=== PATIENT | male | born 1960 | race Caucasian/White ===

== ENCOUNTER 2018-07-21 00:19 | Outpatient (CLI) | payer SELFPAY | END 2018-07-21 00:20 | disposition short-term general hospital (02) | LOC: EMS 00:19 | PROVIDERS: ATTEND Surgery | DX: R07.89 Other chest pain (principal) | CPT/HCPCS: A0425; A0427 ==

== ENCOUNTER 2018-07-25 09:55 | Outpatient (CLI) | payer MEDICAID ==
[2018-07-25 12:44] LABS: BASOPHILS % (AUTO) 0.3 %; EOSINOPHILS # (AUTO) 0.1 10^3/uL (0.0-0.7); EOSINOPHILS % (AUTO) 0.8 %; HGB - HEMOGLOBIN 13.5 g/dL (14.0-18.0); LYMPHOCYTES # (AUTO) 1.5 10^3/uL (1.5-3.5); LYMPHOCYTES % (AUTO) 13.3 %; MEAN CORPUSCULAR HEMOGLOBIN 32.4 pg (27.0-31.0); MEAN CORPUSCULAR HGB CONC 33.3 g/dL (32.0-36.0); MEAN CORPUSCULAR VOLUME 97.4 fL (80.0-94.0); MEAN PLATELET VOLUME 8.8 fL (7.4-11.4); MONOCYTES # (AUTO) 1.5 10^3/uL (0.0-1.0); MONOCYTES % (AUTO) 13.1 %; NEUTROPHILS # (AUTO) 8.2 10^3/uL (1.5-6.6); NEUTROPHILS % (AUTO) 72.5 %; PLT - PLATELET COUNT 292 10^3/uL (130-450); RED BLOOD COUNT 4.16 10^6/uL (4.70-6.10); RED CELL DISTRIBUTION WIDTH 13.2 % (12.0-15.0); WHITE BLOOD COUNT 11.3 x10^3/uL (4.8-10.8)
[2018-07-25 13:46] LABS: CALCIUM 8.8 mg/dL (8.5-10.3); CREATININE 1.1 mg/dL (0.6-1.2)
== END 2018-07-25 23:59 | disposition home or self-care (01) ==
LOC: LAB.WCP 09:55
PROVIDERS: ATTEND Nurse Practitioner
DX: I50.21 Acute systolic (congestive) heart failure (principal); D72.829 Elevated white blood cell count, unspecified
CPT/HCPCS: 36415; 80048; 83880; 85025

== ENCOUNTER 2018-08-05 10:30 | Emergency (ER) | payer MEDICAID ==
[2018-08-05] MEDS ORDERED: LIDOCAINE-EPINEPH-TETRACAINE 3 ML SYRINGE TOP STA (11:47)
--- NOTE | 2018-08-05 11:49 | ED Physician Documentation ---
History of Present Illness - Stated complaint Stated Complaint: R EYE LID IRRITATION - Chief complaint Chief Complaint: Wound - Additonal information Additional information: hx from pt 57 male felt something embedded in inner upper eyelid after working on a light fixture now painful swelling to upper R eyelid X couple weeks but he had a heart attack so mendoaz not been able to get this looked at no contacts Review of Systems Eyes: reports: Other (eyelid swelling) PD PAST MEDICAL HISTORY - Past Medical History Cardiovascular: High cholesterol, Deep vein thrombosis Respiratory: None Endocrine/Autoimmune: None GI: Colon polyps : None HEENT: None Psych: None Musculoskeletal: Osteoarthritis Derm: None - Past Surgical History General: Colonoscopy HEENT: Tonsil/Adenoidectomy - Present Medications Home Medications: Ambulatory Orders Medication Instructions Recorded Confirmed Diclofenac Sodium Dr [Voltaren] 75 mg PO BID 04/12/15 07/06/15 Pravastatin Sodium 40 mg PO DAILY 04/12/15 07/08/15 Aspirin [Lo-Dose Aspirin EC] 81 mg PO DAILY 06/30/15 07/06/15 Cephalexin [Keflex] 500 mg PO Q6H #28 capsule 08/05/18 Erythromycin Base [Erythromycin 1 applic OP Q4H #1 tube 08/05/18 Ophthalmic Ointment] - Allergies Allergies/Adverse Reactions: Allergies Allergy/AdvReac Type Severity Reaction Status Date / Time No Known Drug Allergies Allergy Verified 08/05/18 10:41 - Social History Smoking Status: Current every day smoker PD ED PE NORMAL - Vitals Vital signs reviewed: Yes - HEENT HEENT: Other (R upper lid with tight tender eyrythemaout swelling just above lid margic c.w infected stye, unable to every lid to look for FB or pointing, no corneal abrasion on reveles lamp exam) Results - Vitals Vitals: Vital Signs - 24 hr 08/05/18 10:38 Temperature 36.0 C L Heart Rate 63 Respiratory 16 Rate Blood Pressure 129/72 O2 Saturation 99 Oxygen O2 Source Room air PD MEDICAL DECISION MAKING - ED course ED course: needle asp of abscess yieled approx 2 cc of pus and dec swelling - but still too swollen to invert eyelid to eval for FB will irrigate, rx keflex and emycin ointment and refer to ophtho for recheck after swelling has further subsided Departure - Departure Disposition: 01 Home, Self Care Clinical Impression: Eyelid abscess Qualifiers: Laterality: right Qualified Code(s): H00.033 - Abscess of eyelid right eye, unspecified eyelid Condition: Good Instructions: ED Abscess IandD Follow-Up: DWAYNE MARIN MD [Primary Care Provider] - Andres Patterson MD [Provider Admit Priv/Credential] - (call to schedule a follow up appointment this week) Prescriptions: Cephalexin [Keflex] 500 mg PO Q6H #28 capsule Erythromycin Base [Erythromycin Ophthalmic Ointment] 1 applic OP Q4H #1 tube Comments: The eyelid is too swollen to invert to look for an embedded foreign body Please do the warm compresses as we discussed, take the oral antibiotic and use the antibiotic ointment I have prescribed Then call the eye clinic to schedule a follow up appointment tomorrow or for a recheck and hopefully the swelling will have subsided enough to allow the lid to be inverted for further evaluation
[2018-08-05] MEDS ORDERED: PROPARACAINE 0.5% OPHTH DROPS 15 ML RIGHTEYE STA (13:25)
[2018-08-05 14:24] VITALS: BP 110/68
== END 2018-08-05 14:28 | disposition home or self-care (01) ==
LOC: ED 10:30
DX: H00.031 Abscess of right upper eyelid (principal); F17.200 Nicotine dependence, unspecified, uncomplicated; Z79.82 Long term (current) use of aspirin
CPT/HCPCS: 67700; 99283; J3490

== ENCOUNTER 2018-08-11 12:16 | Outpatient (CLI) | payer MEDICAID ==
[2018-08-11 19:27] LABS: CREATININE 1.3 mg/dL (0.6-1.2)
== END 2018-08-11 23:59 | disposition home or self-care (01) ==
LOC: LAB.WCP 12:16
PROVIDERS: ATTEND Internal Medicine Cardiovascular Disease
DX: I25.5 Ischemic cardiomyopathy (principal); I50.22 Chronic systolic (congestive) heart failure
CPT/HCPCS: 36415; 80048; 83880

== ENCOUNTER 2018-09-22 12:33 | Outpatient (CLI) | payer MEDICAID ==
[2018-09-22 18:03] LABS: ALBUMIN 3.9 g/dL (3.2-5.5); ALBUMIN/GLOBULIN RATIO 1.4 (1.0-2.2); ALKALINE PHOSPHATASE 40 IU/L (42-121); ALT ALANINE AMINOTRANSFERASE 27 IU/L (10-60); AST ASPARTATE AMINOTRANSFERASE 19 IU/L (10-42); BILIRUBIN,TOTAL 0.5 mg/dL (0.2-1.0); BUN - BLOOD UREA NITROGEN 14 mg/dL (6-20); CALCIUM 8.9 mg/dL (8.5-10.3); CARBON DIOXIDE - CO2 24 mmol/L (21-32); CHLORIDE 108 mmol/L (101-111); CHOL/HDL RATIO 2.2 (<5.0); CHOLESTEROL 88 mg/dL; CREATININE 0.8 mg/dL (0.6-1.2); GFR - MDRD 99 (>89); GLUCOSE 91 mg/dL (70-100); HDL CHOLESTEROL 40 mg/dL; LDL CHOLESTEROL,CALCULATED 37 mg/dL; LDL/HDL RATIO 0.9 (<3.6); SODIUM 137 mmol/L (135-145); TOTAL PROTEIN 6.6 g/dL (6.7-8.2); VLDL CHOLESTEROL 11 mg/dL
== END 2018-09-22 12:34 | disposition home or self-care (01) ==
LOC: LAB.F 12:33
PROVIDERS: ATTEND Internal Medicine Cardiovascular Disease
DX: E78.5 Hyperlipidemia, unspecified (principal); I25.10 Atherosclerotic heart disease of native coronary artery without angina pectoris; I50.22 Chronic systolic (congestive) heart failure
CPT/HCPCS: 36415; 80053; 80061; 81599; 82172; 83721; 83880

== ENCOUNTER 2018-11-07 13:54 | Outpatient (CLI) | payer MEDICAID ==
[2018-11-07 21:13] LABS: CREATININE 0.9 mg/dL (0.6-1.2)
== END 2018-11-07 13:55 | disposition home or self-care (01) ==
LOC: LAB.F 13:54
PROVIDERS: ATTEND Internal Medicine Cardiovascular Disease
DX: I25.10 Atherosclerotic heart disease of native coronary artery without angina pectoris (principal); I50.22 Chronic systolic (congestive) heart failure
CPT/HCPCS: 36415; 80048; 83880